=== PATIENT | male | born 1950 | race Caucasian/White ===

== ENCOUNTER 2020-06-16 02:26 | Emergency (ER) | payer MEDICARE, OTHER, SELFPAY ==
[2020-06-16] VITALS (16 sets, daily range): BP systolic 71–146; BP diastolic 41–86; PULSE 87–140; RESP 18–28; TEMP 33–38.1; O2SAT 88–949; BMI 33.5
[2020-06-16] MEDS: Etomidate 20 MG/10 ML VIAL IVPUSH (02:32)
--- NOTE | 2020-06-16 02:38 | CT_ITS ---
EXAMINATION: CT HEAD WITHOUT CONTRAST CLINICAL INFORMATION: Seizure COMPARISON: None TECHNIQUE: Contiguous axial imaging was performed from the skull base to vertex without intravenous administration of contrast. This CT examination was performed using dose optimization techniques as appropriate, variously including the following: *Automated exposure control *Adjustment of mA and/or kV according to patient size (this includes techniques or standardized protocols for targeted exams where dose is matched to indication/reason for exam; i.e. extremities or head) *Use of iterative reconstruction technique DLP: 1261 mGy-cm FINDINGS: There are postoperative changes from prior craniotomy involving portions of the left frontal bone and sphenotemporal region. There is a region of underlying parenchymal hypoattenuation in the left frontal lobe with mild scattered areas of internal and peripheral hyperdensity, suggestive of postsurgical sequelae though no prior studies are available for comparison. No abnormal mass effect or midline shift is seen. Coreas to white matter differentiation is well preserved. No extra-axial fluid collections are identified. The ventricles are normal in size. The osseous structures and soft tissues are normal. Mucous retention cyst noted in the left frontal sinus. The mastoid air cells are well-aerated. IMPRESSION: Postoperative changes of the left frontal lobe and overlying calvarium. There is some scattered internal hyperattenuation in this region of the left frontal lobe which is also suggestive of postsurgical change, though without prior studies for comparison the possibility of small amounts of superimposed acute hemorrhage would be difficult to entirely exclude. Comparison with any prior examinations would be helpful.
--- NOTE | 2020-06-16 02:39 | ECG_ITS ---
Test Reason : SEIZURE Blood Pressure : / mmHG Vent. Rate : 124 BPM Atrial Rate : 124 BPM P-R Int : 150 ms QRS Dur : 094 ms QT Int : 318 ms P-R-T Axes : 040 027 039 degrees QTc Int : 456 ms Sinus tachycardia Nonspecific ST abnormality Borderline ECG No previous ECGs available Referred By: Asia Ching Electronically Signed By:SARANYA HERZOG MD
--- NOTE | 2020-06-16 02:41 | ED.SEIZURE ---
HPI - Seizure General Chief Complaint: Seizure Stated Complaint: SEIZURE Time Seen by Provider: 06/16/20 02:38 Source: EMS Mode of arrival: EMS Limitations: no limitations History of Present Illness HPI Narrative: This is a 69-year-old male with a reported history of seizures and whom EMS found seizing approximately 25 minutes prior to their arrival. They administered 6 mg of IV Versed without notable improvement in seizure activity and reports that patient was also noted to be hypoxic and posturing. Hypoxia was reported at approximately 88% with supplemental oxygen (100% non-rebreather). EMS also endorses that patient has some type of cancer . Related Data Allergies Allergy/AdvReac Type Severity Reaction Status Date / Time No Known Allergies Allergy Verified 06/16/20 02:35 Review of Systems Review of Systems: Yes unobtainable due to endotracheal tube and Unobtainable due to mental condition PMFSH Past Medical History Source: nursing notes reviewed Social History Social History Advance Directives: No Advance Directives Information Provided: No Physical Exam Vital Signs: Vital Signs: Vital Signs Temp Pulse Resp BP Pulse Ox 06/16/20 06:41 99 F 98 24 H 100/59 L 949 H 06/16/20 06:24 94 F L 93 24 H 88/54 L 95 06/16/20 06:08 99.9 F 100 25 H 74/46 L 96 06/16/20 05:59 106 H 28 H 72/45 L 06/16/20 05:33 100.0 F 105 H 24 H 100/54 L 06/16/20 04:57 100 F 98 26 H 104/65 06/16/20 04:50 100 F 99 24 H 107/65 06/16/20 04:37 100.2 F 96 103/65 06/16/20 04:31 71/41 L 06/16/20 04:29 100.2 F 87 23 H 74/43 L 06/16/20 03:55 100.2 F 102 H 18 145/86 H 06/16/20 03:30 100.2 F 140 H 18 132/86 06/16/20 03:06 100.6 F H 116 H 18 128/81 98 06/16/20 02:56 100.6 F H 116 H 20 119/75 97 06/16/20 02:37 119 H 18 111/70 89 L Body Mass Index 33.5 VITAL SIGNS: Reviewed. GENERAL: Actively seizing HEAD: Normocephalic/atraumatic, EYES: PERRLA, EOMI unable to assess, no nystagmus/pallor/icterus noted EARS: Ext canals without abnormality, NOSE: Nares patent bilateral OROPHARYNX: no oral lesions noted, posterior pharynx with vomitus material and stigmata of having vomited noted around the lips. NECK: Supple, no adenopathy LUNGS: Decreased breath sounds bilaterally right greater than left. 100% non-rebreather in place. SpO2<89%> CARDIOVASCULAR: Sinus tachycardia and rhythm without noted murmurs, no JVD or lower extremity edema. ABDOMEN: Soft, non-tender, non-distended with bowel sounds. No rigidity. No guarding. No palpable masses or hernias noted MUSCULOSKELETAL: No tenderness, deformities, or effusions noted on gross inspection. patient actively seizing EXTREMITIES: No cyanosis, clubbing or edema. SKIN: Inspection of the skin reveals no rashes, ulcerations, jaundice, pallor, or petechiae. NEUROLOGIC: Obtunded, seizing, posturing noted Course Course Course Narrative: This is a 69-year-old male who is noted to be actively seizing at on the time of arrival and suspicious for aspiration event and was emergently intubated for airway protection as well as seizure control. On review of documentation obtained from [facility] it is noted that there is documentation of metastatic melanoma, however CT scan does not show any acute intracranial bleed or ischemic event. On review of all lab work is consistent with the seizure activity and less likely secondary to sepsis although CT of the chest does show right-sided consolidation that is consistent with aspiration is suspected to have occurred during seizure activity. Patient received sepsis fluids, antibiotics, lactic acid as well as further medication treatment for seizure control. Patient then required balancing with Levophed to maintain adequate blood pressure. Reevaluation(s) Reevaluation #1: patient is continuing to seize despite being intubated and on appropriate dose of propofol, will administer 2mg/kg IV push. I discussed the case with Dr. Brooks, neurology, who recommends Keppra load and transfer to [facility] neural ICU for further management and treatment. Time: 03:46 Reevaluation #2: Spoke with the ICU fellow at [facility] who is accepting the patient for transfer. Time: 05:20 Reevaluation #3: Patient started having another seizure and increased propofol accordingly and spoke with the ICU fellow who recommends 10 mg of Ativan and endorses that Dr. Ernandez is the accepting physician at [facility]. Time: 05:25 Procedures Intubation sedative: Etomidate Mg Given: 20 paralytic: Rocuronium Mg Given: 100 Laryngoscope: fiber optic video scope Assist Device Used: fiber optic device ET Tube Size: 7.5 ET Tube Uncuffed: Yes Tube Secured Depth (cm): 25 Tube Secured Location: lips Tube Placement Confirmation: visualized tube passing through cords, equal breath sounds bilaterally, no breath sounds over epigastrium and confirmation by capnometry Patient Tolerated Procedure: well and no complications Intubation Complications: none Additional Comments: Vomit present and suctioned MDM - Seizure Lab Data Result diagrams: 06/16/20 02:52 06/16/20 02:53 Labs: Lab Results 06/16/20 06/16/20 06/16/20 Range/Units 02:52 02:53 02:53 WBC 15.1 H (4.8-10.8) X10*3/uL RBC 4.53 L (4.60-5.80) X10*6/uL Hgb 13.2 L (14.0-18.0) g/dl Hct 40.1 L (42-52) % MCV 88.5 (80-98) fL MCH 29.1 (27.0-33.0) pg MCHC 32.9 (31.0-36.0) g/dl RDW 12.3 (11.0-16.0) % Plt Count 233 (160-400) X10*3/uL MPV 10.2 (9.4-12.4) fL Immature Gran % (Auto) 0.3 (0.0-0.4) % Neut % (Auto) 78.6 H (45-73) % Lymph % (Auto) 11.3 L (20-40) % [place] % (Auto) 9.1 (2-11) % Eos % (Auto) 0.2 (0-4) % Baso % (Auto) 0.5 (0-2) % Lymph # (Auto) 1.7 (1.2-4.9) X10*3/uL [place] # (Auto) 1.4 H (0.1-1.2) X10*3/uL Eos # (Auto) 0.0 (0.0-0.4) X10*3/uL Baso # (Auto) 0.1 (0.0-0.2) X10*3/uL Abs Immat Gran (auto) 0.05 H (0.00-0.03) X10*3/uL Absolute Neuts (auto) 11.9 H (2.0-8.3) X10*3/uL Absolute Nucleated RBC 0.000 (0.0-0.012) X10*3/uL Nucleated RBC % (auto) 0.0 (0.0-0.2) /100WBC Sodium 140 (135-145) mmol/L Potassium 3.9 (3.3-5.1) mmol/l Chloride 106 (96-108) mmol/L Carbon Dioxide 24 (22-29) mmol/L Anion Gap 14 (12-20) BUN 19 H (9-16) mg/dL Creatinine 1.36 (0.5-1.4) mg/dL Estim Creat Clear Calc 60.6 Estimated GFR 52 Random Glucose 80 (60-115) mg/dL Lactic Acid (0.5-2.0) mmol/L Calcium 8.5 (8.4-10.2) mg/dL Magnesium 2.4 (1.6-2.6) mg/dL Total Bilirubin < 0.2 (0.0-1.0) mg/dL AST 28 (5-37) U/L ALT 30 (0-40) U/L Alkaline Phosphatase 75 (39-117) U/L Total Protein 6.1 L (6.5-8.0) g/dL Albumin 3.7 (3.5-5.0) g/dL Lipase 26 (8-78) U/L Urine Color YELLOW Urine Appearance HAZY Urine pH 5.5 (5.0-8.0) Ur Specific [place] >= 1.030 H (1.005-1.025) Urine Protein 1+ H (NEG-TRACE) MG/DL Urine Glucose (UA) NEG (NEG) MG/DL Urine Ketones NEG (NEG) MG/DL Urine Blood 1+ H (NEG) Urine Nitrite NEG (NEG) Ur Leukocyte Esterase NEG (NEG) Urine RBC 5-9 H (0) /HPF Urine WBC 1-4 (0-4) /HPF Ur Squamous Epith Cells 1+ /LPF Calcium Oxalate Crystal 1+ /LPF Urine Bacteria 2+ /LPF Hyaline Casts 5-9 /LPF Granular Casts 1-4 /LPF Urine Mucus 2+ /LPF // Range/Units 02:53 WBC (4.8-10.8) X10*3/uL RBC (4.60-5.80) X10*6/uL Hgb (14.0-18.0) g/dl Hct (42-52) % MCV (80-98) fL MCH (27.0-33.0) pg MCHC (31.0-36.0) g/dl RDW (11.0-16.0) % Plt Count (160-400) X10*3/uL MPV (9.4-12.4) fL Immature Gran % (Auto) (0.0-0.4) % Neut % (Auto) (45-73) % Lymph % (Auto) (20-40) % [place] % (Auto) (2-11) % Eos % (Auto) (0-4) % Baso % (Auto) (0-2) % Lymph # (Auto) (1.2-4.9) X10*3/uL [place] # (Auto) (0.1-1.2) X10*3/uL Eos # (Auto) (0.0-0.4) X10*3/uL Baso # (Auto) (0.0-0.2) X10*3/uL Abs Immat Gran (auto) (0.00-0.03) X10*3/uL Absolute Neuts (auto) (2.0-8.3) X10*3/uL Absolute Nucleated RBC (0.0-0.012) X10*3/uL Nucleated RBC % (auto) (0.0-0.2) /100WBC Sodium (135-145) mmol/L Potassium (3.3-5.1) mmol/l Chloride (96-108) mmol/L Carbon Dioxide (22-29) mmol/L Anion Gap (12-20) BUN (9-16) mg/dL Creatinine (0.5-1.4) mg/dL Estim Creat Clear Calc Estimated GFR Random Glucose (60-115) mg/dL Lactic Acid 2.7 H* (0.5-2.0) mmol/L Calcium (8.4-10.2) mg/dL Magnesium (1.6-2.6) mg/dL Total Bilirubin (0.0-1.0) mg/dL AST (5-37) U/L ALT (0-40) U/L Alkaline Phosphatase (39-117) U/L Total Protein (6.5-8.0) g/dL Albumin (3.5-5.0) g/dL Lipase (8-78) U/L Urine Color Urine Appearance Urine pH (5.0-8.0) Ur Specific [place] (1.005-1.025) Urine Protein (NEG-TRACE) MG/DL Urine Glucose (UA) (NEG) MG/DL Urine Ketones (NEG) MG/DL Urine Blood (NEG) Urine Nitrite (NEG) Ur Leukocyte Esterase (NEG) Urine RBC (0) /HPF Urine WBC (0-4) /HPF Ur Squamous Epith Cells /LPF Calcium Oxalate Crystal /LPF Urine Bacteria /LPF Hyaline Casts /LPF Granular Casts /LPF Urine Mucus /LPF Critical Care Time Critical Care Time Critical Care Time: Yes Total Critical Care Time: 90 Attestation: I personally attest to this time spent taking care of the patient. - Intubation - Called Consults - Ventilator Mgmnt - Reviewed documentation from [facility] Discharge Plan Discharge Clinical Impression: Status epilepticus Patient Disposition: Xfer [facility] Interventions: Acute Care Transfer Worksheet (ED) Last Done: 06/16/20 07:12 Discharge Date/Time: 06/16/20 07:13
[2020-06-16] MEDS: propofoL 1,000 MG/100 ML VIAL 1.85 MG IVCONT ×2 (02:49→03:30)
--- NOTE | 2020-06-16 02:50 | CT_ITS ---
EXAMINATION: CT CHEST WITHOUT CONTRAST CLINICAL INFORMATION: Question aspiration, post intubation COMPARISON: None TECHNIQUE: Multidetector volumetric CT imaging of the chest was done. Axial MIP volume rendering provided. Sagittal and coronal reformatted images were obtained. This CT examination was performed using dose optimization techniques as appropriate, variously including the following: *Automated exposure control *Adjustment of mA and/or kV according to patient size (this includes techniques or standardized protocols for targeted exams where dose is matched to indication/reason for exam; i.e. extremities or head) *Use of iterative reconstruction technique DLP: 1261 mGy-cm FINDINGS: LUNGS: Endotracheal tube tip lies approximately 5 cm above the nancy. There is near complete right lower lobe consolidation and patchy consolidations of the right upper lobe, predominantly posteriorly. The right middle lobe appears collapsed. There is dependent opacity in the left lower lobe which is favored to partially represent atelectasis, though some superimposed consolidation is also likely present in the superior segment. There is a peripheral left upper lobe nodule measuring 8 mm on image 19/66. There is also an anterior left upper lobe nodule measuring 5 x 3 mm (average 4 mm) on image 13/66. MEDIASTINUM: Thyroid gland appears grossly unremarkable. There are subcentimeter mediastinal lymph nodes within the range of normal variation. Cardiac size is within normal limits; no pericardial effusion. Coronary artery calcifications are present. Scattered atherosclerotic calcifications are present. PLEURA: There is suggestion of small pleural effusions, suboptimally assessed without intravenous contrast. No pneumothorax. AXILLA: No lymphadenopathy. UPPER ABDOMEN: Enteric tube courses into the distended stomach. OSSEOUS STRUCTURES: Degenerative changes are noted in the spine. IMPRESSION: 1. Near complete right lower lobe consolidation and patchy consolidation of the right upper lobe. Given the distribution, this could reflect sequelae of aspiration. Dependent opacity in the left lower lobe is favored to at least partially represent atelectasis, though a portion of this could also represent sequelae of consolidation/aspiration. 2. Collapsed right middle lobe. In the setting of aspiration, this could represent postobstructive collapse. 3. Coronary artery calcifications. Correlation with cardiac risk factors is recommended. 4. Left upper lobe nodules measuring up to 8 mm. According to the UPDATED 2017 Fleischner Society recommendations, the advised follow-up imaging for a single solid nodule measuring 8 mm or greater is: Consider CT, PET/CT, or tissue sampling at 3 months.
[2020-06-16 02:59] LABS: MANUAL DIFF FLAG NO
[2020-06-16 03:01] LABS: Basophils Absolute Auto 0.1 X10*3/uL (0.0-0.2); Basophils Percent Auto 0.5 % (0-2); Eosinophils Percent Auto 0.2 % (0-4); Hematocrit 40.1 % (42-52); Hemoglobin 13.2 g/dl (14.0-18.0); Imm Gran Abs Auto 0.05 X10*3/uL (0.00-0.03); Imm Gran Pct Auto 0.3 % (0.0-0.4); Lymphocytes Absolute Auto 1.7 X10*3/uL (1.2-4.9); Lymphocytes Percent Auto 11.3 % (20-40); Mean Corpuscular HGB Conc 32.9 g/dl (31.0-36.0); Mean Corpuscular Hemoglobin 29.1 pg (27.0-33.0); Mean Corpuscular Volume 88.5 fL (80-98); Mean Platelet Volume 10.2 fL (9.4-12.4); Monocytes Absolute Auto 1.4 X10*3/uL (0.1-1.2); Monocytes Percent Auto 9.1 % (2-11); Neutrophils Absolute Auto 11.9 X10*3/uL (2.0-8.3); Neutrophils Percent Auto 78.6 % (45-73); Platelet Count 233 X10*3/uL (160-400); Red Blood Count 4.53 X10*6/uL (4.60-5.80); Red Cell Distribution Width 12.3 % (11.0-16.0); White Blood Count 15.1 X10*3/uL (4.8-10.8)
--- NOTE | 2020-06-16 03:10 | PC.NURSE ---
Off to CT on hospital bed with RT at bedside.
--- NOTE | 2020-06-16 03:25 | PC.NURSE ---
Returned from CT without incident. Per verbal order from MD, rectal Tylenol to be given.
[2020-06-16 03:31] LABS: Alanine Aminotransferase 30 U/L (0-40); Albumin Level 3.7 g/dL (3.5-5.0); Alkaline Phosphatase 75 U/L (39-117); Anion Gap 14 (12-20); Aspartate Amino Transferase 28 U/L (5-37); Bilirubin Total < 0.2 mg/dL (0.0-1.0); Blood Urea Nitrogen 19 mg/dL (9-16); Carbon Dioxide 24 mmol/L (22-29); Chloride 106 mmol/L (96-108); Creatinine Clr Calc Pharmacy 60.6; Estimated Glomerular Filt Rate 52; Glucose Random 80 mg/dL (60-115); Lipase 26 U/L (8-78); Magnesium 2.4 mg/dL (1.6-2.6); Potassium 3.9 mmol/l (3.3-5.1); Sodium 140 mmol/L (135-145); Total Protein 6.1 g/dL (6.5-8.0)
[2020-06-16 03:35] LABS: Calcium 8.5 mg/dL (8.4-10.2)
--- NOTE | 2020-06-16 03:51 | PC.NURSE ---
This RN at bedside to medicate with rectal Tylenol when pt suddenly became tense, his entire body quivering with SZ like activity, pts HR increased from 110 to 150 bpm. MD at bedside. Per MD to medicate pt with a bolus of 200 mg of Propofol. This RN medicated pt with 100n mg of Propofol IVP and is monitoring response. VSS at this time, pt is no longer seizing. Awaiting CT results. Continue to monitor.
[2020-06-16] MEDS: propofoL 200 MG/20 ML VIAL IVPUSH (04:04)
--- NOTE | 2020-06-16 04:06 | PC.NURSE ---
Pt again seizing, medicated with the additional 100 mg of Propofol per MD order. VSS at this time.
[2020-06-16 04:13] LABS: Lactic Acid 2.7 mmol/L (0.5-2.0)
[2020-06-16] MEDS: Piperacillin Sodium/Tazobactam 3.375 GM in 0.9 % Sodium Chloride 50 ML IV (04:19)
[2020-06-16] MEDS: 0.9 % Sodium Chloride 3,060 ML 999 ML IV (04:19)
--- NOTE | 2020-06-16 04:28 | PC.NURSE ---
RT at bedside due to vent alarming.
--- NOTE | 2020-06-16 04:30 | PC.NURSE ---
IVF infusing per MAR. Prop paused due to hypotension.
--- NOTE | 2020-06-16 04:33 | PC.NURSE ---
+Tonic/clonic SZ activity at this time lasting approx 45 seconds, subsiding on its own. aware.
--- NOTE | 2020-06-16 04:44 | PC.NURSE ---
Per MD, plan to transfer to [facility]. Plan for IV Keppra and Levophed, MD confirming Levophed to be run through peripheral IV.
--- NOTE | 2020-06-16 04:52 | PC.NURSE ---
BCX drawn upon arrival @ ED due to elevated temp, but not ordered by MD until 440. Zosyn given after BCX were drawn.
--- NOTE | 2020-06-16 05:32 | PC.NURSE ---
Addendum entered by Anny Stephen 06/16/20 07:05: Unable to scan Levophed, nuclear plant instrument technician also unable to scan Levophed. Original Note: Levophed started at 0.05 mcg/kg/min. Prop increased to 3 mcg/kg/min due to continued SZ activity despite admin of Keppra.
[2020-06-16 05:35] LABS: Glucose Urine UA NEG (NEG); Leukocyte Esterase Urine NEG (NEG); Nitrite Urine NEG (NEG); PH 5.5 (5.0-8.0); Specific Gravity - Urine >= 1.030 (1.005-1.025); Urine Blood 1+ (NEG); Urine Ketones NEG (NEG); Urine Protein 1+ MG/DL (NEG-TRACE)
[2020-06-16 05:37] LABS: Appearance Urine HAZY; Color Urine YELLOW
[2020-06-16] MEDS: LORazepam 2 MG/ML VIAL 10 MG IVPUSH (05:37)
--- NOTE | 2020-06-16 05:39 | PC.NURSE ---
Pt medicated with 10 mg of Ativan IVP due to continued SZ activity.
--- NOTE | 2020-06-16 06:00 | PC.NURSE ---
Levophed continuously increased to maintain a MAP of 65. Levophed @ 0.11 mcg/kg/hr. BP remains 74/47.
[2020-06-16 06:07] LABS: Bacteria Urine 2+ /LPF; Calcium Oxalate Crystals Urine 1+ /LPF; Mucus Urine 2+ /LPF; Squamous Epithelial Cell Urine 1+ /LPF
[2020-06-16 06:11] LABS: Reflex Lactate? Lactic Acid Added
--- NOTE | 2020-06-16 06:20 | PC.NURSE ---
Levophed maxed at 3 mcg/kg/hr to maintain a BP, MD aware. EMS at bedside awaiting a systolic of 90 prior to transport.
--- NOTE | 2020-06-16 06:32 | PC.NURSE ---
Pt maxed out on Levophed at 0.3 mcg/kg/hr, remains hypotensive @ 82/52. Per MD, verbal order to increase Levophed to 0.34 mcg/kg/hr.
[2020-06-16] MEDS: Phenylephrine HCL 10 MG/ML VIAL IVPUSH (06:38)
--- NOTE | 2020-06-16 07:02 | PC.NURSE ---
Nurse to nurse report given to Neuro ASSET SPECIALIST. Pt en route to [facility] via EMS.
--- NOTE | 2020-06-16 07:10 | PC.NURSE ---
This RN calling Pharmacy as Levohammad was never able to scan. Per Pharmacy, they were able to make a note within the order that this medication was given @ 0530. Per Pharmacy to call the command center for further assistance.
== END 2020-06-16 07:13 | disposition short-term general hospital (02) ==
PROVIDERS: Emergency Provider Student in an Organized Health Care Education/Training Program
DX: G40.901 Epilepsy, unspecified, not intractable, with status epilepticus (principal); Z79.899 Other long term (current) drug therapy
CPT/HCPCS: 36415; 70450; 71250; 80053; 81001; 83605; 83690; 83735; 85025; 87040; 93005; 96365; 96375; 99282; 99285; 99291; 99292; J1953; J2060; J2370